=== PATIENT | female | born 1950 | race Caucasian/White ===

== ENCOUNTER 2018-07-09 23:32 | Emergency (ER) | payer MEDICARE, OTHER | END 2018-07-10 04:23 | disposition home or self-care (01) | LOC: ED 23:32 ==

== ENCOUNTER 2020-10-09 10:14 | Day surgery (SDC) | payer MEDICARE ==
[~2020-10-09 10:14] MED LIST: Ak-Dilate OPHTHALMIC*** 1.065 ML, Cyclogyl 1% OPHTH SOL 5 ML 1.065 ML, GATIFLOXACIN 0.5... OP ONE; BETADINE 5% OPHTHALMIC 30 ML OP ONE; Lactated Ringers 1,000 ML IV SCH; NON-FORMULARY ITEM OP ONE; TETRACAINE 0.5% STERI-UNIT SOL OP ONE; cefUROXime sodium 0.005 GM in Sodium Chloride Flush 30 ML*** 0.5 ML IJ SCH
[2020-10-09] MEDS ORDERED: Lactated Ringers 1,000 ML IV ONE (11:11)
[2020-10-09] MEDS ORDERED: DIPRIVAN 200 MG/20 ML IV ONE (12:09)
[2020-10-09] MEDS ORDERED: ACETAZOLAMIDE 250 MG TABLET PO ONE (12:30)
[2020-10-09] MEDS ORDERED: LIDOCAINE HCL 1% 50 MG/5 ML VL PF IJ ONE (12:30)
[2020-10-09] MEDS ORDERED: Epinephrine Preservative Free 1 MG/ML INTRAOP ONE (12:30)
[2020-10-09] MEDS ORDERED: Zofran 4 MG/2 ML VIAL IV PRN (12:30)
[2020-10-09 13:19] VITALS: O2SAT 96
[2020-10-09 13:23] VITALS: BP 136/86; PULSE 84
== END 2020-10-09 13:30 | disposition home or self-care (01) ==
LOC: SDC 10:14
PROVIDERS: ATTEND Ophthalmology
DX: H25.812 Combined forms of age-related cataract, left eye (principal); E11.9 Type 2 diabetes mellitus without complications; Z79.899 Other long term (current) drug therapy; I10 Essential (primary) hypertension; E78.00 Pure hypercholesterolemia, unspecified
CPT/HCPCS: 82947; C1780; J0171; J2001; J2704; A9270-GY

== ENCOUNTER 2020-11-13 07:02 | Day surgery (SDC) | payer MEDICARE ==
[2020-11-13] MEDS ORDERED: Lactated Ringers 1,000 ML IV ONE (07:03)
[2020-11-13] MEDS: TETRACAINE 0.5% STERI-UNIT SOL OP ONE ×2 (07:38→08:11)
[2020-11-13] MEDS ORDERED: ACETAZOLAMIDE 250 MG TABLET PO ONE (09:00)
[2020-11-13] MEDS ORDERED: DIPRIVAN 200 MG/20 ML IV ONE (09:00)
[2020-11-13] MEDS ORDERED: Zofran 4 MG/2 ML VIAL IV PRN (09:00)
[2020-11-13] MEDS ORDERED: ROBINUL ONE (09:00)
[2020-11-13 10:14] VITALS: BP 146/81; PULSE 57; O2SAT 95
[2020-11-13] MEDS ORDERED: LIDOCAINE HCL 1% 50 MG/5 ML VL PF IJ ONE (15:00)
[2020-11-13] MEDS ORDERED: Epinephrine Preservative Free 1 MG/ML INTRAOP ONE (15:00)
== END 2020-11-13 10:25 | disposition home or self-care (01) ==
LOC: SDC 07:02
PROVIDERS: ATTEND Ophthalmology
DX: H25.811 Combined forms of age-related cataract, right eye (principal); E11.9 Type 2 diabetes mellitus without complications; I10 Essential (primary) hypertension; E78.00 Pure hypercholesterolemia, unspecified; Z79.899 Other long term (current) drug therapy
CPT/HCPCS: 82947; C1780; J0171; J2001; J2704; A9270-GY

== ENCOUNTER 2024-07-16 16:32 | Emergency (ER) | payer MEDICARE ==
--- NOTE | 2024-07-16 17:03 | ERPHSYRPT ---
- History of Present Illness Time Seen by Provider: 07/16/24 17:03 Source: patient Exam Limitations: no limitations Physician History: Patient reports to ER after a mechanical fall while walking. She hit the right side of her head and left palm. She has a very superficial laceration of right eyelid. Abrasion noted of left thenar eminence. Patient denies pain, focal weakness, change in speech or difficulty swallowing. No pain and FROM of left hand and wrist. Occurred: just prior to arrival Reason for Fall: tripped Injuries/Pain Location: head, upper extremity Loss of Consciousness: no loss of consciousness Severity of Pain-Max: none Severity of Pain-Current: none Modifying Factors: Worsens With: nothing Associated Symptoms (Fall): No back pain, No confusion, No dizziness, No extremity injury, No lightheadedness, No slurred speech, No vomiting Allergies/Adverse Reactions: No Known Drug Allergies Allergy (Verified 07/16/24 16:47) Home Medications: Clonazepam [Klonopin] 1 mg PO BID 11/23/12 [History] Sertraline HCl [Zoloft] 100 mg PO DAILY 11/23/12 [History] Atorvastatin Calcium [Lipitor] 10 mg PO DAILY 04/30/13 [History] Aspirin EC 81 mg [Ecotrin 81 mg] 81 mg PO DAILY 10/05/20 [History] Metformin HCl 500 mg [Glucophage 500 MG] 500 mg PO BIDWM 10/05/20 [History] Vit C/E/Cuperic/Zinc/Lutein [Preservision Lutein Softgel] 1 each PO DAILY 10/05/20 [History] Hx Tetanus, Diphtheria Vaccination/Date Given: No Hx Influenza Vaccination/Date Given: Yes Hx Pneumococcal Vaccination/Date Given: Yes - Review of Systems All Other Systems: Reviewed and Negative - Past Medical History Pertinent Past Medical History: Yes Neurological History: No Pertinent History ENT History: Cataracts, Glaucoma, Macular Degeneration Cardiac History: High Cholesterol, Hypertension, Other Respiratory History: No Pertinent History Endocrine Medical History: Diabetes Type II Musculoskeletal History: No Pertinent History GI Medical History: No Pertinent History History: No Pertinent History Psycho-Social History: Anxiety, Depression Female Reproductive Disorders: No Pertinent History Other Medical History: BRADYCARDIA. PANIC ATTACKS - Past Surgical History Past Surgical History: Yes Neuro Surgical History: No Pertinent History Cardiac: No Pertinent History Respiratory: No Pertinent History Gastrointestinal: No Pertinent History Genitourinary: No Pertinent History Musculoskeletal: No Pertinent History Female Surgical History: Tubal Ligation Significant Family History: no pertinent family hx - Social History Drug Use: none - Nursing Vital Signs Nursing Vital Signs: Initial Vital Signs Temperature 97.6 F 07/16/24 16:49 Pulse Rate 65 07/16/24 16:49 Respiratory Rate 20 07/16/24 16:49 Blood Pressure 143/77 07/16/24 16:49 O2 Sat by Pulse Oximetry 97 07/16/24 16:49 Pain Scale Pain Intensity 0 - Parker Coma Score Best Eye Response ([place]arker): (4) open spontaneously Best Verbal Response ([place]): (5) oriented Best Motor Response ([place]arker): (6) obeys commands Parker Total: 15 - Physical Exam General Appearance: no apparent distress Head Injury: lacerations (right eyelid), swelling, tenderness Eye Exam: PERRL/EOMI, eyes nml inspection ENT Exam: airway nml Neck Exam: supple, trachea midline, full range of motion, normal alignment, normal inspection Extremity Exam: normal range of motion, other (abrasion left thenar eminence), No tenderness Neurologic Exam: alert, oriented x 3, cooperative SpO2 Interpretation: normal O2 Delivery: Room Air Procedures - Laceration/Wound Repair Right Head Time of Procedure: 18:15 Wound Location: Right, forehead Wound Length (cm): 1.5 Wound's Depth, Shape: superficial Wound Explored: clean Irrigated: Yes Hibiclens Prep: Yes Wound Repaired With: Dermabond Sterile Dressing Applied?: No Splint Applied?: No Sling Applied?: No - Course Nursing assessment & vital signs reviewed: Yes - CT Exams Head CT Interpretation: Negative, Tele-radiologist Report Ordered Tests: Active Orders 24 hr Category Date Time Status HEAD WITHOUT CONTRAST [CT] Stat Exams 07/16/24 17:03 Taken - Progress Progress: improved Progress Note: Patient had a mechanical fall hitting the right side of her head, she has swelling and superficial laceration of eyelid that will require approximation with surgical glue. Neuro exam wnl on exam today, will order CT head to r/o acute bleed. No Pain with palpation or ROM of left wrist, imaging deferred at this time. 07/16/24 18:28 CT head neg for acute bleed. Counseled pt/family regarding: diagnosis, need for follow-up, rad results Medical Desision Making - Diagnostic Testing Diagnostic test were ordered, analyzed, and reviewed by me: Yes Radiological Interpretation: Interpreted by me, Reviewed by me, Teleradiologist Report - Risk of complications Low Risk: Low risk of morbidity from additional dx testing or treatment - Departure Departure Disposition: Home Clinical Impression: Fall, Laceration of forehead without complication, Abrasion of palm of left hand Condition: Good Critical Care Time: No Referrals: LEXX ZHANG [Primary Care Provider] - Follow up/PCP as directed Instructions: Preventing falls in adults
[2024-07-16 17:13] VITALS: BP 143/77; PULSE 65; RESP 20; TEMP 97.6; O2SAT 97
--- NOTE | 2024-07-16 18:32 | XRAY ---
CLINICAL HISTORY: fall, headache COMPARISON: None. TECHNIQUE: An axial non-contrast CT scan of the brain was performed from the skull base to the high parietal region. One of the following dose reduction techniques were utilized for this exam: Automated exposure control, adjustment of the mA and/or kV according to patient size, use of iterative reconstruction. FINDINGS: Brain Parenchyma: No evidence of hemorrhage, or mass effect. Diffuse exaggerated periventricular hypoattenuation. Ill-defined hypodensity seen in the right deep periventricular parieto-occipital region, likely part of the chronic ischemic changes No acute infarctions Right basal ganglia 4 mm hyperdensity, likely related to aging calcification Ventricular System: Ventricles are mildly dilated. Subarachnoid Spaces: Widened sulci and cisterns. No evidence of subarachnoid hemorrhage or extra-axial fluid collections. Cerebellum and Brainstem: Normal size and signal. No masses, lesions, or areas of abnormal signal. Orbits: Normal appearance of the globes, optic nerves, and extraocular muscles. Mild right frontal extracranial soft tissue edema and swelling. Sinuses: Clear paranasal sinuses. No evidence of sinusitis or mucosal thickening. Mastoid Air Cells: Clear mastoid air cells. No evidence of mastoiditis. Skull: Normal skull morphology. IMPRESSION: 1. No evidence of intracranial hemorrhage. 2. Brain involutional changes. with small vessel disease. 3. Mild right frontal extracranial soft tissue edema and swelling, posttraumatic. Electronically Signed by: Jaime Hair MD. (07/16/2024 18:26:50 EDT)
== END 2024-07-16 18:55 | disposition home or self-care (01) ==
LOC: ED 16:32
DX: S01.81XA Laceration without foreign body of other part of head, initial encounter (principal); S60.512A Abrasion of left hand, initial encounter; W01.0XXA Fall on same level from slipping, tripping and stumbling without subsequent striking against object, initial encounter; E78.5 Hyperlipidemia, unspecified; I10 Essential (primary) hypertension; E11.9 Type 2 diabetes mellitus without complications; Z79.84 Long term (current) use of oral hypoglycemic drugs; Z79.899 Other long term (current) drug therapy
CPT/HCPCS: 12001; 70450; 99283; 99284

== ENCOUNTER 2025-01-29 12:37 | Observation (INO) | payer MEDICARE ==
[2025-01-29 13:19] LABS: BASOPHIL % 0.4 % (0.1-1.2); Basophil (Absolute #) 0.03 x10^3/uL (0.01-0.08); Eosinophil (Absolute #) 0.16 x10^3/uL (0.04-0.36); Hematocrit 44.6 % (34.1-44.9); Hemoglobin 14.8 g/dL (11.2-15.7); IMMATURE GRAN # 0.03 x10^3u/L (0.001-0.031); IMMATURE GRAN % 0.4 % (0.001-0.429); Lymphocyte (Absolute #) 2.31 x10^3/uL (1.18-3.74); Mean Corpuscular Hemoglobin 30.2 pg (25.6-32.2); Mean Corpuscular Hgb Concent. 33.2 g/dL (32.2-35.5); Monocyte (Absolute #) 0.61 x10^3/uL (0.24-0.86); NUCLEATED RBC # 0.00 x10^3u/L (0.00-0.012); NUCLEATED RBC % 0.0 % (0.00-0.2); Platelet Count 193 x10^3/uL (182-369); Red Blood Count 4.90 x10^6/uL (3.93-5.22); White Blood Count 7.4 x10^3/uL (3.98-10.04)
--- NOTE | 2025-01-29 13:21 | ERPHSYRPT ---
- History of Present Illness Time Seen by Provider: 01/29/25 12:44 Source: patient, family Exam Limitations: clinical condition Patient Subjective Stated Complaint: Pt. states, "I have been more forgetful of late, I can't even remember how to use my cell phone. I thought today was Thursday. I've also had more falls recently. I woke up today feeling odd and it scared me" Triage Nursing Assessment: Pt. ambulates to room with assist x1, slightly unsteady gait. AOx4, Skin P/W/D, Resp. even unlabored, No edema. Pleasant and cooperative. Physician History: Patient is here with increased confusion over the past 2 to 3 days. Patient's adult sister is in the room, does help with history. Per her, patient states that she woke up today and was confused, cannot figure out how to use the phone, was more panicky. She states that patient has been getting more confused over the past year. Patient does live alone. They are concerned that she may be having UTIs or mini strokes. Patient does have a follow-up with her PCP, Dr. Garland tomorrow. Patient has no specific focal neurological findings, no fevers at home. States that she just feels "more off". Patient's adult daughter is a nurse and recommended she be brought in for evaluation. As I walk into the room, patient is pleasant, answering all my questions appropriately. Allergies/Adverse Reactions: No Known Drug Allergies Allergy (Verified 07/16/24 16:47) Home Medications: Clonazepam [Klonopin] 1 mg PO BID 11/23/12 [History] Sertraline HCl [Zoloft] 100 mg PO DAILY 11/23/12 [History] Atorvastatin Calcium [Lipitor] 10 mg PO DAILY 04/30/13 [History] Aspirin EC 81 mg [Ecotrin 81 mg] 81 mg PO DAILY 10/05/20 [History] Hx Tetanus, Diphtheria Vaccination/Date Given: No Hx Influenza Vaccination/Date Given: Yes Hx Pneumococcal Vaccination/Date Given: Yes Travel Risk - International Travel Have you traveled outside of the country in past 3 weeks: No - Emerging Infectious Disease Are you exhibiting symptoms associated with any current EIDs: No - Past Medical History Pertinent Past Medical History: Yes Neurological History: No Pertinent History ENT History: Cataracts, Glaucoma, Macular Degeneration Cardiac History: High Cholesterol, Hypertension, Other Respiratory History: No Pertinent History Endocrine Medical History: Diabetes Type II Musculoskeletal History: No Pertinent History GI Medical History: No Pertinent History History: No Pertinent History Psycho-Social History: Anxiety, Depression Female Reproductive Disorders: No Pertinent History Other Medical History: BRADYCARDIA. PANIC ATTACKS - Past Surgical History Past Surgical History: Yes Neuro Surgical History: No Pertinent History Cardiac: No Pertinent History Respiratory: No Pertinent History Gastrointestinal: No Pertinent History Genitourinary: No Pertinent History Musculoskeletal: No Pertinent History Female Surgical History: Tubal Ligation Significant Family History: no pertinent family hx - Social History Smoking Status: Never smoker Exposure to second hand smoke: No Drug Use: none - Social Determinants of Health Will the patient participate in the screening: Declined to provide - Nursing Vital Signs Nursing Vital Signs: Initial Vital Signs Temperature 96.8 F 01/29/25 12:38 Pulse Rate 56 L 01/29/25 12:38 Respiratory Rate 16 01/29/25 12:38 Blood Pressure 174/85 01/29/25 12:38 O2 Sat by Pulse Oximetry 94 L 01/29/25 12:38 Pain Scale Pain Intensity 0 - Physical Exam SpO2 Interpretation: normal SpO2: 94 Comments: 01/29/25 13:20 Review of Systems Constitutional: Negative for fever. Increased confusion HENT: Negative for congestion. Respiratory: Negative for shortness of breath. Cardiovascular: Negative for chest pain. Gastrointestinal: Negative for abdominal pain. Genitourinary: Negative for dysuria. Musculoskeletal: Negative for back pain. Skin: Negative for rash. Neurological: Negative for headaches. Psychiatric/Behavioral: Negative for behavioral problems. All other systems reviewed and are negative. Physical Exam Vitals signs and nursing note reviewed. Constitutional: Appearance: Patient is well-developed. HENT: Head: Normocephalic and atraumatic. Eyes: Conjunctiva/sclera: Conjunctivae normal. Neck: Musculoskeletal: Normal range of motion. Trachea: No tracheal deviation. Cardiovascular: Rate and Rhythm: Normal rate. Heart sounds normal. Pulmonary: Effort: Pulmonary effort is normal. No respiratory distress. Abdominal: Palpations: Abdomen is soft. Musculoskeletal: General: No deformity. Skin: General: Skin is warm and dry. Neurological/ Psychiatric: Mental Status: Mental status, behavior, interaction with environment is appropriate for patient's age and condition. Patient does know who the president is, does remember how she got here today, does answer my question going. Motor: Patient lifts arms against gravity. Muscle strength and tone are normal Reflexes: Intact major reflexes Sensory: Light touch sensation intact throughout upper and lower extremities Coordination: Rapid alternating movements are intact. Normal [id number] Gait/Stance: Posture is normal, patient is sitting up in bed with normal strength Ordered Tests: Active Orders 24 hr Category Date Time Status Call Admit Doctor for Orders ON ADMISSION Care 01/29/25 16:02 Active Code Status Order ROUTINE Care 01/29/25 16:02 Active EKG-ER Only STAT Care 01/29/25 13:08 Active IV Insertion STAT Care 01/29/25 13:[address] in Observation ROUTINE Care 01/29/25 16:02 Active House Regular Diet Diet 01/30/25 Breakfast Active CHEST 1 VIEW (PORTABLE) Stat Exams 01/29/25 13:08 Completed HEAD WITHOUT CONTRAST [CT] Stat Exams 01/29/25 13:09 Completed BLOOD CULTURE Stat Lab 01/29/25 13:27 Received CBC W DIFF Stat Lab 01/29/25 13:10 Completed CMP Stat Lab 01/29/25 13:10 Completed CULTURE,URINE Stat Lab 01/29/25 13:08 Received LIPASE Stat Lab 01/29/25 13:10 Completed TROPONIN Q4H Lab 01/29/25 13:10 Completed TROPONIN Q4H Lab 01/29/25 17:15 Ordered TROPONIN Q4H Lab 01/29/25 21:15 Ordered UA W/RFX UR CULTURE Stat Lab 01/29/25 13:08 Completed Pulse Oximetry CONTINUOUS RT 01/29/25 16:02 Active Respiratory Therapy Consult ONCE RT 01/29/25 16:02 Active Transfer Order Routine Transfer 01/29/25 Completed Medication Summary Discontinued Medications Generic Name Dose Route Start Last Admin Trade Name Freq PRN Reason Stop Dose Admin Ceftriaxone Sodium 1 gm in 100 mls @ 200 mls/hr 01/29/25 15:45 01/29/25 15:49 Rocephin 1 Gm / 100 Ml Nacl IV 01/29/25 16:14 200 mls/hr STAT ONE 200 mls/hr Administration Ceftriaxone Sodium Confirm 01/29/25 15:47 Rocephin 1 Gm / 100 Ml Nacl Administered 01/29/25 15:48 Dose 1 gm in 100 mls @ ud IV .STK-MED ONE Lab/Rad Data: Laboratory Result Diagrams 01/29/25 13:10 01/29/25 13:10 Laboratory Results 01/29/25 01/29/25 01/29/25 Range/Units 13:10 13:10 13:10 WBC 7.4 (3.98-10.04) x10^3/uL RBC 4.90 (3.93-5.22) x10^6/uL Hgb 14.8 (11.2-15.7) g/dL Hct 44.6 (34.1-44.9) % MCV 91.0 (79.4-94.8) fL MCH 30.2 (25.6-32.2) pg MCHC 33.2 (32.2-35.5) g/dL RDW 13.0 (11.7-14.4) % Plt Count 193 (182-369) x10^3/uL MPV 11.0 (9.4-12.3) fL Gran % 57.7 (34.0-71.1) % Immature Gran % (Auto) 0.4 (0.001-0.429) % Nucleat RBC Rel Count 0.0 (0.00-0.2) % Eos # (Auto) 0.16 (0.04-0.36) x10^3/uL Immature Gran # (Auto) 0.03 (0.001-0.031) x10^3u/L Absolute Lymphs (auto) 2.31 (1.18-3.74) x10^3/uL Absolute Monos (auto) 0.61 (0.24-0.86) x10^3/uL Absolute Nucleated RBC 0.00 (0.00-0.012) x10^3u/L Lymphocytes % 31.1 (19.3-51.7) % Monocytes % 8.2 (4.7-12.5) % Eosinophils % 2.2 (0.7-5.8) % Basophils % 0.4 (0.1-1.2) % Absolute Granulocytes 4.28 (1.56-6.13) x10^3/uL Basophils # 0.03 (0.01-0.08) x10^3/uL Sodium 141 (135-145) mmol/L Potassium 4.4 (3.5-5.1) mmol/L Chloride 107 (98-107) mmol/L Carbon Dioxide 27 (22-30) mmol/L Anion Gap 11.4 (5-15) MEQ/L BUN 18 H (7-17) mg/dL Creatinine 0.65 (0.52-1.04) mg/dL Estimated GFR 92.3 ML/MIN Glucose 154 H (74-106) mg/dL Calcium 11.7 H (8.4-10.2) mg/dL Total Bilirubin 0.50 (0.2-1.3) mg/dL AST 29 (14-36) U/L ALT 24 (0-35) U/L Alkaline Phosphatase 175 H (38-126) U/L Troponin I < 0.012 (0.000-0.033) ng/mL Serum Total Protein 7.7 (6.3-8.2) g/dL Albumin 4.7 (3.5-5.0) g/dL Lipase 183 (23-300) U/L Urine Color (Yellow) Urine Appearance (Clear) Urine pH (4.6-8.0) Ur Specific [place] (1.005-1.030) Urine Protein (Negative) Urine Glucose (UA) (Negative) mg/dL Urine Ketones (Negative) Urine Blood (Negative) Urine Nitrite (Negative) Urine Bilirubin (Negative) Urine Urobilinogen (0.2) mg/dL Ur Leukocyte Esterase (Negative) Urine Microscopic RBC (0-5) /HPF Urine Microscopic WBC (0-5) /HPF Ur Epithelial Cells (None Seen) /HPF Calcium Oxalate Crystal (None Seen) /HPF Urine Bacteria (None Seen) /HPF Urine Culture Reflexed (NO) 01/29/25 Range/Units 13:08 WBC (3.98-10.04) x10^3/uL RBC (3.93-5.22) x10^6/uL Hgb (11.2-15.7) g/dL Hct (34.1-44.9) % MCV (79.4-94.8) fL MCH (25.6-32.2) pg MCHC (32.2-35.5) g/dL RDW (11.7-14.4) % Plt Count (182-369) x10^3/uL MPV (9.4-12.3) fL Gran % (34.0-71.1) % Immature Gran % (Auto) (0.001-0.429) % Nucleat RBC Rel Count (0.00-0.2) % Eos # (Auto) (0.04-0.36) x10^3/uL Immature Gran # (Auto) (0.001-0.031) x10^3u/L Absolute Lymphs (auto) (1.18-3.74) x10^3/uL Absolute Monos (auto) (0.24-0.86) x10^3/uL Absolute Nucleated RBC (0.00-0.012) x10^3u/L Lymphocytes % (19.3-51.7) % Monocytes % (4.7-12.5) % Eosinophils % (0.7-5.8) % Basophils % (0.1-1.2) % Absolute Granulocytes (1.56-6.13) x10^3/uL Basophils # (0.01-0.08) x10^3/uL Sodium (135-145) mmol/L Potassium (3.5-5.1) mmol/L Chloride (98-107) mmol/L Carbon Dioxide (22-30) mmol/L Anion Gap (5-15) MEQ/L BUN (7-17) mg/dL Creatinine (0.52-1.04) mg/dL Estimated GFR ML/MIN Glucose (74-106) mg/dL Calcium (8.4-10.2) mg/dL Total Bilirubin (0.2-1.3) mg/dL AST (14-36) U/L ALT (0-35) U/L Alkaline Phosphatase (38-126) U/L Troponin I (0.000-0.033) ng/mL Serum Total Protein (6.3-8.2) g/dL Albumin (3.5-5.0) g/dL Lipase (23-300) U/L Urine Color Yellow (Yellow) Urine Appearance Clear (Clear) Urine pH 5.0 (4.6-8.0) Ur Specific [place] >=1.030 A (1.005-1.030) Urine Protein Negative (Negative) Urine Glucose (UA) Negative (Negative) mg/dL Urine Ketones Negative (Negative) Urine Blood Negative (Negative) Urine Nitrite Negative (Negative) Urine Bilirubin Negative (Negative) Urine Urobilinogen 1.0 A (0.2) mg/dL Ur Leukocyte Esterase Negative (Negative) Urine Microscopic RBC 0-2 (0-5) /HPF Urine Microscopic WBC 0-2 (0-5) /HPF Ur Epithelial Cells None Seen (None Seen) /HPF Calcium Oxalate Crystal 11-25 A (None Seen) /HPF Urine Bacteria Rare A (None Seen) /HPF Urine Culture Reflexed ORDERED SEPARATELY (NO) - Progress Progress: improved Progress Note: 01/29/25 13:20 Differential diagnosis includes: PNA, STEMI, NSTEMI, other infection, musculoskeletal pain, pneumothorax, UTI, head bleed, TIA, electrolyte abnormality - We'll obtain basic labs, fluids, EKG, troponin, chest x-ray - EKG shows no ST changes - my read - O2 saturations consistently greater than 95%. - CXR shows no pneumonia, pneumothorax - my read 01/29/25 16:24 We did obtain a head CT that did not show any acute bleed, other abnormality. UA showed some bacteria in the urine. EKG as above, no acute ST changes. Overall, no clear smoking gun for patient's acute mental status change this morning. Patient appears to have acute metabolic encephalopathy on top of chronic changes. Patient's adult sister states that she has decline in function over the last 1 year. However, given that this event is acute, I did discuss with patient's sister and adult daughter and the patient to make this decision possible. Using shared decision making, we did decide to admit patient for observation. Therefore, I did start ceftriaxone for the bacteria in urine. I discussed over the phone with on-call physician, Dr. Ike Lyle. We discussed the case in detail, answered all his questions. He will admit patient under his service, continued close monitoring in the hospital. Counseled pt/family regarding: lab results, diagnosis, need for follow-up, rad results - Departure Departure Disposition: Observation Clinical Impression: Acute metabolic encephalopathy, Bacteria in urine, Confusion Condition: Stable Critical Care Time: No
[2025-01-29 13:33] LABS: Calcium 11.7 mg/dL (8.4-10.2); Carbon Dioxide 27.0 mmol/L (22-30); Creatinine 1 0.65 mg/dL (0.52-1.04); EST GLOMERULAR FILTRATION RATE 92.3 ML/MIN; Glucose 154.0 mg/dL (74-106); Potassium 4.4 mmol/L (3.5-5.1); SGOT/AST 29.0 U/L (14-36); SGPT/ALT 24.0 U/L (0-35); Total Protein 7.7 g/dL (6.3-8.2)
[2025-01-29 13:55] LABS: Glucose, Urine Negative (Negative); Protein,Urine Dip Negative (Negative)
[2025-01-29 14:07] LABS: RBC 0-2 /HPF (0-5); WBC 0-2 /HPF (0-5)
--- NOTE | 2025-01-29 15:04 | XRAY ---
CLINICAL HISTORY: AMS COMPARISON: 07/16/2024 CT TECHNIQUE: Axial non-contrast CT scan of the brain was performed from the skull base to the high parietal region. One of the following dose reduction techniques was utilized for this exam: automated exposure control, adjustment of the mA and/or kV according to patient size, or use of iterative reconstruction. DLP: 1044.86 mGy.cm FINDINGS: Brain Parenchyma: There is no evidence of acute infarct, hemorrhage, or mass effect. Diffuse periventricular hypoattenuation is present, with unchanged hypodensity seen in the right parietal periventricular white matter, which is likely part of chronic ischemic changes. A stable right basal ganglia calcific focus is noted. Ventricular System: The ventricles are mildly dilated. Subarachnoid Spaces: The sulci and cisterns are widened. There is no evidence of subarachnoid hemorrhage or extra-axial fluid collections. Cerebellum and Brainstem: The cerebellum and brainstem are normal in size and signal. No masses, lesions, or areas of abnormal signal are identified. Orbits: The globes, optic nerves, and extraocular muscles appear normal. Interval resolution of the right frontal subcutaneous hematoma is noted. Sinuses: The paranasal sinuses are clear. There is no evidence of sinusitis or mucosal thickening. Mastoid Air Cells: The mastoid air cells are clear. There is no evidence of mastoiditis. Skull: Skull morphology is normal. IMPRESSION: 1. There is no acute infarct, hemorrhage, or mass effect. 2. There are age-appropriate brain involutional changes. 3. Chronic microvascular ischemic changes are unchanged. 4. Interval resolution of the right frontal subcutaneous hematoma. 5. No interval new abnormality. Electronically Signed by: Colt Jose MD. (01/29/2025 15:02:24 EDT)
--- NOTE | 2025-01-29 15:42 | XRAY ---
CLINICAL HISTORY: PNA COMPARISON: Compared to the previous CR study dated 11/23/2012. TECHNIQUE: An X-ray image of the chest was obtained in the AP projection. FINDINGS: Pulmonary Parenchyma: Prominent hilar and basal pulmonary vasculature, unchanged. Otherwise, the lungs are clear bilaterally. There is no evidence of consolidation, collapse, or focal opacities. No pulmonary nodules are identified. There is no evidence of pleural effusion or pleural thickening. Heart and Mediastinum: Mildly enlarged cardiac size, stable. There is no mediastinal widening or masses. No hilar or mediastinal lymphadenopathy is seen. Atheromatous calcifications of the aortic arch are a new finding. Bony Thorax: The bony thorax appears intact without fractures or deformities. Soft Tissues: The soft tissues overlying the chest wall are unremarkable. ECG leads are seen. IMPRESSION: 1. No acute cardiopulmonary abnormalities are identified. 2. Picture of pulmonary congestion, unchanged. 3. Mild cardiomegaly, stable. 4. Atheromatous calcifications of the aortic arch, new finding. 5. No significant interval changes since the last study. Electronically Signed by: Colt Jose MD. (01/29/2025 15:41:34 EDT)
[2025-01-29] MEDS ORDERED: ROCEPHIN 1 GM / 100 ML NaCl 1 GM/100 ML IVPB IV ONE (15:47)
[2025-01-29] MEDS: ROCEPHIN 1 GM / 100 ML NaCl 1 GM/100 ML IVPB IV ONE (15:49)
--- NOTE | 2025-01-29 16:14 | PCM.HP ---
History of Present Illness - Chief Complaint Chief Complaint: confusion Date: 01/29/25 History of Present Illness: is a 74 year old female with a pmhx of HTN, HLD, type 2 diabetes mellitus, anxiety, depression, and recurrent panic attacks, who presented to the emergency department on January 29, 2025, with [id number] confusion. She reports progressive forgetfulness over the past year, now worsening over the last 23 days. The patient reports progressive generalized weakness and unsteady gait over the past several days, associated with increased confusion and forgetfulness. She describes difficulty maintaining balance and has had several recent falls, though she denies focal neurological symptoms such as unilateral weakness, facial droop, slurred speech, or visual changes. On exam, no acute focal deficits are appreciated. She describes episodes of disorientation, such as being unable to operate her cell phone or recall the day. She lives alone and acknowledges feeling off more often lately, which has heightened her anxiety. On arrival to the emergency department, she was bradycardic with a heart rate of 56 beats per minute and mildly hypertensive at 174/85 mmHg. She was afebrile and oxygenating well. Laboratory studies revealed hypercalcemia with a serum calcium of 11.7 mg/dL and an elevated alkaline phosphatase at 175 U/L, concerning for possible metabolic or bone turnover process contributing to her symptoms. Other serum chemistries were pending or unremarkable at this time. Urinalysis showed bacteria but was negative for leukocyte esterase and nitrites, suggesting colonization rather than infection. CXR demonstrated no acute cardiopulmonary disease. There was stable mild cardiomegaly with pulmonary vascular prominence and paratracheal markings, consistent with chronic pulmonary venous congestion, but no new consolidation, effusion, collapse, or nodularity. A noncontrast CT scan of the head showed no acute intracranial hemorrhage, infarct, or mass effect. Chronic small-vessel ischemic changes and age-related atrophy were present, unchanged from prior studies. The previously noted right frontal subcutaneous hematoma had resolved. In the emergency department, she was empirically given a dose of ceftriaxone, though infectious etiology was not clearly supported by initial workup. Given the acute encephalopathy in the context of metabolic derangements, bradycardia, and her baseline risk factors, she will be admitted for further evaluation and management. Neurology will be consulted for assessment of progressive cognitive decline and falls. - Review of Systems Constitutional: Weakness Eyes: No Symptoms Ears, Nose, & Throat: No Symptoms Respiratory: Short Of Breath Cardiac: No Symptoms Abdominal/Gastrointestinal: No Symptoms Genitourinary Symptoms: No Symptoms Musculoskeletal: No Symptoms Skin: No Symptoms Neurological: Dizziness, Headache Psychological: No Symptoms Endocrine: No Symptoms Hematologic/Lymphatic: No Symptoms Immunological/Allergic: No Symptoms Medications & Allergies Home Medications: Home Medication List Clonazepam [Klonopin] 1 mg PO BID 11/23/12 [History Confirmed 01/29/25] Sertraline HCl [Zoloft] 100 mg PO DAILY 11/23/12 [History Confirmed 01/29/25] Metoprolol Succinate 50 mg [Toprol Xl 50 MG] 50 mg PO DAILY #0 tablet.sa 11/24/12 [Rx Confirmed 01/29/25] Atorvastatin Calcium [Lipitor] 10 mg PO DAILY 04/30/13 [History Confirmed 01/29/25] Aspirin EC 81 mg [Ecotrin 81 mg] 81 mg PO DAILY 10/05/20 [History Confirmed 01/29/25] Allergies/Adverse Reactions: Allergies Allergy/AdvReac Type Severity Reaction Status Date / Time No Known Drug Allergies Allergy Verified 07/16/24 16:47 - Past Medical History Past Medical History: Yes Neurological History: No Pertinent History ENT History: Cataracts, Glaucoma, Macular Degeneration Cardiac History: High Cholesterol, Hypertension, Other Respiratory History: No Pertinent History Endocrine Medical History: Diabetes Type II Musculoskelatal History: No Pertinent History GI Medical History: No Pertinent History History: No Pertinent History Pyscho-Social History: Anxiety, Depression Reproductive Disorders: No Pertinent History Comment: BRADYCARDIA. PANIC ATTACKS - Past Surgical History Past Surgical History: Yes Neuro Surgical History: No Pertinent History Cardiac History: No Pertinent History Respiratory Surgery: No Pertinent History GI Surgical History: No Pertinent History Genitourinary Surgical Hx: No Pertinent History Musculskeletal Surgical Hx: No Pertinent History Female Surgical History: Tubal Ligation Significant Family History: heart disease, cancer, diabetes, stroke - Social History Smoking Status: Never smoker Exposure to second hand smoke: No Alcohol: None Drug Use: none - Social Determinants of Health Will the patient participate in the screening: Declined to provide Do you worry about a steady place to live?: No In the past 12 months,have you had to go without utilities?: No Have you or anyone in your house had to go without enough: No Transportation Issues: No Has anyone in your support network made you feel unsafe?: No - Physical Exam Vital Signs: Vital Signs - 24 hr Temp Pulse Resp BP BP Pulse Ox 01/29/25 15:45 94 L 01/29/25 15:01 50 L 25 H 163/70 95 01/29/25 14:30 53 L 23 175/79 95 01/29/25 14:13 51 L 15 175/78 96 01/29/25 13:31 151/59 01/29/25 13:01 56 L 22 163/65 01/29/25 12:38 96.8 F 56 L 16 174/85 94 L General Appearance: no apparent distress Neurologic Exam: alert, oriented x 3, cooperative, confusion Eye Exam: PERRL/EOMI Ears, Nose, Throat Exam: normal ENT inspection Neck Exam: normal inspection Respiratory Exam: normal breath sounds, lungs clear Cardiovascular Exam: regular rate/rhythm, normal heart sounds Gastrointestinal/Abdomen Exam: soft, normal bowel sounds Pelvic Exam: not done Rectal Exam: deferred Back Exam: normal inspection Extremity Exam: normal inspection Skin Exam: normal color Results - Labs Lab/Micro Results: Lab Results-Last 24 Hours 01/29/25 01/29/25 01/29/25 Range/Units 13:08 13:10 13:10 WBC 7.4 (3.98-10.04) x10^3/uL RBC 4.90 (3.93-5.22) x10^6/uL Hgb 14.8 (11.2-15.7) g/dL Hct 44.6 (34.1-44.9) % MCV 91.0 (79.4-94.8) fL MCH 30.2 (25.6-32.2) pg MCHC 33.2 (32.2-35.5) g/dL RDW 13.0 (11.7-14.4) % Plt Count 193 (182-369) x10^3/uL MPV 11.0 (9.4-12.3) fL Gran % 57.7 (34.0-71.1) % Immature Gran % (Auto) 0.4 (0.001-0.429) % Nucleat RBC Rel Count 0.0 (0.00-0.2) % Eos # (Auto) 0.16 (0.04-0.36) x10^3/uL Immature Gran # (Auto) 0.03 (0.001-0.031) x10^3u/L Absolute Lymphs (auto) 2.31 (1.18-3.74) x10^3/uL Absolute Monos (auto) 0.61 (0.24-0.86) x10^3/uL Absolute Nucleated RBC 0.00 (0.00-0.012) x10^3u/L Lymphocytes % 31.1 (19.3-51.7) % Monocytes % 8.2 (4.7-12.5) % Eosinophils % 2.2 (0.7-5.8) % Basophils % 0.4 (0.1-1.2) % Absolute Granulocytes 4.28 (1.56-6.13) x10^3/uL Basophils # 0.03 (0.01-0.08) x10^3/uL Sodium 141 (135-145) mmol/L Potassium 4.4 (3.5-5.1) mmol/L Chloride 107 (98-107) mmol/L Carbon Dioxide 27 (22-30) mmol/L Anion Gap 11.4 (5-15) MEQ/L BUN 18 H (7-17) mg/dL Creatinine 0.65 (0.52-1.04) mg/dL Estimated GFR 92.3 ML/MIN Glucose 154 H (74-106) mg/dL Calcium 11.7 H (8.4-10.2) mg/dL Total Bilirubin 0.50 (0.2-1.3) mg/dL AST 29 (14-36) U/L ALT 24 (0-35) U/L Alkaline Phosphatase 175 H (38-126) U/L Troponin I (0.000-0.033) ng/mL Serum Total Protein 7.7 (6.3-8.2) g/dL Albumin 4.7 (3.5-5.0) g/dL Lipase 183 (23-300) U/L Urine Color Yellow (Yellow) Urine Appearance Clear (Clear) Urine pH 5.0 (4.6-8.0) Ur Specific [place] >=1.030 A (1.005-1.030) Urine Protein Negative (Negative) Urine Glucose (UA) Negative (Negative) mg/dL Urine Ketones Negative (Negative) Urine Blood Negative (Negative) Urine Nitrite Negative (Negative) Urine Bilirubin Negative (Negative) Urine Urobilinogen 1.0 A (0.2) mg/dL Ur Leukocyte Esterase Negative (Negative) Urine Microscopic RBC 0-2 (0-5) /HPF Urine Microscopic WBC 0-2 (0-5) /HPF Ur Epithelial Cells None Seen (None Seen) /HPF Calcium Oxalate Crystal 11-25 A (None Seen) /HPF Urine Bacteria Rare A (None Seen) /HPF Urine Culture Reflexed ORDERED SEPARATELY (NO) 01/29/25 Range/Units 13:10 WBC (3.98-10.04) x10^3/uL RBC (3.93-5.22) x10^6/uL Hgb (11.2-15.7) g/dL Hct (34.1-44.9) % MCV (79.4-94.8) fL MCH (25.6-32.2) pg MCHC (32.2-35.5) g/dL RDW (11.7-14.4) % Plt Count (182-369) x10^3/uL MPV (9.4-12.3) fL Gran % (34.0-71.1) % Immature Gran % (Auto) (0.001-0.429) % Nucleat RBC Rel Count (0.00-0.2) % Eos # (Auto) (0.04-0.36) x10^3/uL Immature Gran # (Auto) (0.001-0.031) x10^3u/L Absolute Lymphs (auto) (1.18-3.74) x10^3/uL Absolute Monos (auto) (0.24-0.86) x10^3/uL Absolute Nucleated RBC (0.00-0.012) x10^3u/L Lymphocytes % (19.3-51.7) % Monocytes % (4.7-12.5) % Eosinophils % (0.7-5.8) % Basophils % (0.1-1.2) % Absolute Granulocytes (1.56-6.13) x10^3/uL Basophils # (0.01-0.08) x10^3/uL Sodium (135-145) mmol/L Potassium (3.5-5.1) mmol/L Chloride (98-107) mmol/L Carbon Dioxide (22-30) mmol/L Anion Gap (5-15) MEQ/L BUN (7-17) mg/dL Creatinine (0.52-1.04) mg/dL Estimated GFR ML/MIN Glucose (74-106) mg/dL Calcium (8.4-10.2) mg/dL Total Bilirubin (0.2-1.3) mg/dL AST (14-36) U/L ALT (0-35) U/L Alkaline Phosphatase (38-126) U/L Troponin I < 0.012 (0.000-0.033) ng/mL Serum Total Protein (6.3-8.2) g/dL Albumin (3.5-5.0) g/dL Lipase (23-300) U/L Urine Color (Yellow) Urine Appearance (Clear) Urine pH (4.6-8.0) Ur Specific [place] (1.005-1.030) Urine Protein (Negative) Urine Glucose (UA) (Negative) mg/dL Urine Ketones (Negative) Urine Blood (Negative) Urine Nitrite (Negative) Urine Bilirubin (Negative) Urine Urobilinogen (0.2) mg/dL Ur Leukocyte Esterase (Negative) Urine Microscopic RBC (0-5) /HPF Urine Microscopic WBC (0-5) /HPF Ur Epithelial Cells (None Seen) /HPF Calcium Oxalate Crystal (None Seen) /HPF Urine Bacteria (None Seen) /HPF Urine Culture Reflexed (NO) - Radiology Impressions Radiology Exams & Impressions: Radiology Procedures Category Date Time Status CHEST 1 VIEW (PORTABLE) Stat Exams 01/29/25 13:08 Completed HEAD WITHOUT CONTRAST [CT] Stat Exams 01/29/25 13:09 Completed - Other Procedures and Tests Respiratory Therapy 01/29/25 16:02 Respiratory Therapy Consult ONCE Assessment/Plan (1) Acute encephalopathy Current Visit: Yes Status: Acute Assessment & Plan: -Likely multifactorial: hypercalcemia, baseline chronic microvascular ischemic disease, and psychosocial stressors. No evidence of acute stroke or infection on initial workup. -Consult neurology for evaluation of cognitive decline, rule out evolving neurodegenerative process versus vascular dementia. -Continue telemetry monitoring -Provide orientation cues and frequent reorientation to reduce delirium risk. -MRI Brain w/o contrast -Continue home atorvastatin/asa -check ammonia level, TSH, B12/fol, ammonia, tox screen -Lipid Code(s): G93.40 - ENCEPHALOPATHY, UNSPECIFIED (2) Hypercalcemia Current Visit: Yes Status: Acute Assessment & Plan: -Calcium 11.7 mg/dL, elevated alkaline phosphatase (175 U/L), associated confusion and gait instability. Likely multifactorial; must evaluate for primary hyperparathyroidism, malignancy , and vitamin Dmediated processes. -Recheck Calcium levels -IVF -Monitor urine output and electrolytes. -If calcium rises >12 mg/dL or symptoms worsen, consider adding calcitonin -Hold thiazides, lithium, vitamin D/calcium supplements. -PTH intact/ionized calcium, vitamin D level, SPEP with free light chains, CEA, CA19-9, CA27, CA125 -Consider CT chest/abdomen/pelvis if concern for malignancy after initial labs. Code(s): E83.52 - HYPERCALCEMIA (3) HTN (hypertension) Current Visit: Yes Status: Acute Assessment & Plan: -Continue metoprolol Code(s): I10 - ESSENTIAL (PRIMARY) HYPERTENSION (4) DMII (diabetes mellitus, type 2) Current Visit: Yes Status: Acute Assessment & Plan: -ADA diet -SSI -A1c (5) Anxiety Current Visit: Yes Status: Acute Assessment & Plan: -Continue Zoloft and Klonapin Code(s): F41.9 - ANXIETY DISORDER, UNSPECIFIED (6) HLD (hyperlipidemia) Current Visit: Yes Status: Acute Assessment & Plan: -Continue atorvastatin Code(s): E78.5 - HYPERLIPIDEMIA, UNSPECIFIED Telemedicine Encounter - Telemedicine Encounter Telemedicine Encounter: "The entirety of this encounter was performed via Telemedicine" This visit was performed using real-time audio and video connection between my location and thepatients locationwith the assistance of a surrogateat the patients location. Written or verbal consent was obtained from the patient/guardian to perform this visit using[facility] technology. Any patient questions regarding the telemedicine interaction were answered.
[2025-01-29] MEDS ORDERED: Zofran 4 MG/2 ML VIAL IV PRN (16:47)
[2025-01-29] MEDS ORDERED: TYLENOL 325 MG PO PRN (16:47)
[2025-01-29] MEDS ORDERED: CLONAZEPAM 1 MG PO PRN (16:59)
[2025-01-29] MEDS: DELTASONE 20 MG PO SCH (17:59)
[2025-01-29] MEDS: HUMALOG SQ PRN (22:02)
--- NOTE | 2025-01-29 22:26 | XRAY ---
CLINICAL HISTORY: stroke like symptoms COMPARISON: None. TECHNIQUE: CT angiography study of the neck vessels with IV contrast was performed, and multiple axial sections were obtained with coronal and sagittal reconstructions. One of the following dose reduction techniques was utilized for this exam: automated exposure control, adjustment of the mA and/or kV according to patient size, and use of iterative reconstruction. One of these 3D techniques was utilized: maximum intensity pixel (MIP), 3D reconstructed images, volume-rendered images, or surface shaded rendering. FINDINGS: Carotid Arteries: The common carotid arteries, internal carotid arteries, and external carotid arteries are well opacified bilaterally. There is no evidence of significant stenosis, occlusion, or aneurysm. There are no significant atherosclerotic changes. Note is made of medialization of the bilateral internal carotid arteries at the level of the pharynx, more on the right as compared to the left side. This represents a relatively significant and dangerous anatomical variant. Vertebral Arteries: The vertebral arteries bilaterally are well opacified. There is no evidence of significant stenosis, occlusion, or aneurysm. There are no significant atherosclerotic changes. Jugular Veins: There is normal opacification of the internal and external jugular veins bilaterally. There is no evidence of thrombosis or compression. Subclavian Arteries: The subclavian arteries bilaterally are well opacified. There is no evidence of significant stenosis, occlusion, or aneurysm. Thyroid Gland: There is normal size and morphology of the thyroid gland. There are no masses or nodules. Soft Tissues: There is normal appearance of the surrounding soft tissues of the neck. There are no abnormal masses or lymphadenopathy. Cervical Spine: There is normal alignment and signal intensity of the cervical vertebrae. There are no fractures, lytic, or sclerotic lesions. IMPRESSION: 1. There is no evidence of any acute vascular abnormality noted, including thrombosis or aneurysm. 2. Note is made of medialization of the bilateral internal carotid arteries at the level of the pharynx, more on the right as compared to the left side. This is a relatively significant and dangerous anatomical variant. Needs clinical correlation. Electronically Signed by: Colt Jose MD. (01/29/2025 22:26:01 EDT)
--- NOTE | 2025-01-29 22:26 | XRAY ---
CLINICAL HISTORY: stroke like symptoms COMPARISON: CT HEAD WITHOUT CONTRAST 01/29/2025 TECHNIQUE: An axial CT angiography of the head was performed with and without IV contrast administration, and sagittal and coronal reformats with MIP reconstructions were obtained. One of these 3D techniques was utilized: Maximum Intensity Pixel (MIP), 3D Reconstructed Images, Volume Rendered Images, or Surface Shaded Rendering. One of the following dose reduction techniques was utilized for this exam: automated exposure control, adjustment of the mA and/or kV according to patient size, and use of iterative reconstruction. FINDINGS: Intracranial Arteries: The intracranial portions of the internal carotid arteries, anterior cerebral arteries, middle cerebral arteries, posterior cerebral arteries, basilar artery, and vertebral arteries are well opacified. There is no evidence of aneurysm, stenosis, or occlusion. There are no significant atherosclerotic changes. [place]: The [place] is complete. There is a normal caliber of the communicating arteries. There are no vascular malformations or aneurysms. Venous Structures: There is normal opacification of the major dural venous sinuses. There is no evidence of venous sinus thrombosis. Brain Parenchyma: Mild atrophic brain changes are noted, with prominence of sulci and gyri. Diffuse periventricular hypoattenuation is present, with unchanged hypodensity seen in the right parietal periventricular white matter, which is likely part of chronic ischemic changes and is stable. A stable right basal ganglia calcific focus is noted. There is normal attenuation of the cerebral hemispheres, cerebellum, and brainstem. There is no evidence of acute infarct, hemorrhage, or mass effect. Ventricular System: There is no evidence of hydrocephalus. Skull and Meninges: The skull shows a normal appearance. There is no evidence of meningeal enhancement or thickening. There is no evidence of right frontal subcutaneous hematoma. Orbits: The globes, optic nerves, and extraocular muscles appear normal. There is no evidence of orbital masses or abnormal signal. IMPRESSION: 1. There is no evidence of significant vascular abnormalities. 2. Redemonstration of bilateral mild periventricular ischemic changes on the background of atrophic brain changes, which are stable. Electronically Signed by: Colt Jose MD. (01/29/2025 22:25:42 EDT)
[2025-01-30 05:11] LABS: BASOPHIL % 0.2 % (0.1-1.2); Basophil (Absolute #) 0.01 x10^3/uL (0.01-0.08); Eosinophil (Absolute #) 0 x10^3/uL (0.04-0.36); Hematocrit 45.4 % (34.1-44.9); Hemoglobin 15.1 g/dL (11.2-15.7); IMMATURE GRAN # 0.01 x10^3u/L (0.001-0.031); IMMATURE GRAN % 0.2 % (0.001-0.429); Lymphocyte (Absolute #) 1.11 x10^3/uL (1.18-3.74); Mean Corpuscular Hemoglobin 29.5 pg (25.6-32.2); Mean Corpuscular Hgb Concent. 33.3 g/dL (32.2-35.5); Monocyte (Absolute #) 0.18 x10^3/uL (0.24-0.86); NUCLEATED RBC # 0.00 x10^3u/L (0.00-0.012); NUCLEATED RBC % 0.0 % (0.00-0.2); Platelet Count 208 x10^3/uL (182-369); Red Blood Count 5.11 x10^6/uL (3.93-5.22); White Blood Count 6.5 x10^3/uL (3.98-10.04)
[2025-01-30 05:33] LABS: Calcium 11.8 mg/dL (8.4-10.2); Carbon Dioxide 20.0 mmol/L (22-30); Creatinine 1 0.65 mg/dL (0.52-1.04); EST GLOMERULAR FILTRATION RATE 92.3 ML/MIN; Glucose 171.0 mg/dL (74-106); Potassium 4.6 mmol/L (3.5-5.1); SGOT/AST 25.0 U/L (14-36); SGPT/ALT 26.0 U/L (0-35); Total Protein 7.9 g/dL (6.3-8.2)
[2025-01-30 07:14] VITALS: RESP 16; TEMP 97.8
[2025-01-30 07:24] LABS: Amphetamine,Urine NEGATIVE (NEGATIVE); Barbiturate,Urine NEGATIVE (NEGATIVE); Benzodiazepine,Urine NEGATIVE (NEGATIVE); Cocaine,Urine NEGATIVE (NEGATIVE); Methadone,Urine NEGATIVE (NEGATIVE); Opiate,Urine NEGATIVE (NEGATIVE); PCP,Urine NEGATIVE (NEGATIVE); THC,Urine NEGATIVE (NEGATIVE)
[2025-01-30] MEDS ORDERED: NON-FORMULARY ITEM (Sertraline Hcl [Zoloft] 100 MG Tablet) PO SCH (10:00)
[2025-01-30] MEDS ORDERED: NON-FORMULARY ITEM (Atorvastatin Calcium [Lipitor] 10 MG Tablet) PO SCH (10:00)
--- NOTE | 2025-01-30 10:09 | PCM.DS ---
Discharge Summary Date of Admission: 01/29/25 16:00 Date of Discharge: 01/30/25 Admitting Physician: JOEL HECK MD Consults: Consults on Case 01/29/25 16:55 Consult Neurology ROUTINE 01/30/25 09:24 Consult,Marcos [Psychiatric Consult] STAT Primary Care Provider: LEXX ZHANG Allergies Allergies No Known Drug Allergies Allergy (Verified 07/16/24 16:47) Hospital Summary - Hospital Course Hospital Course: Ms. Das is a 74-year-old woman with a history of hypertension, hyperlipidemia, type 2 diabetes, anxiety, depression, and recurrent panic attacks who presented to the ED on January 29, 2025, with [id number] confusion, progressive forgetfulness, generalized weakness, and unsteady gait worsening over the past few days. She reported recent falls and episodes of disorientation, though denied focal neurological symptoms. On exam, she had no acute deficits but was noted to be bradycardic and mildly hypertensive. Initial labs revealed hypercalcemia (11.7 mg/dL) and elevated alkaline phosphatase, raising concern for a metabolic or bone-related process. Imaging, including CT head and chest X- ray, showed no acute abnormalities. Urinalysis was suggestive of colonization without clear infection. Despite this, she was empirically started on ceftriaxone. On 01/30, she was alert and oriented with no confusion or neurologic deficits. She endorsed suicidal thoughts, prompting psychiatric consultation. Labs revealed vitamin D and B12 deficiencies; B12 replacement was initiated, but vitamin D could not be corrected due to persistently elevated calcium (now 11.8 mg/dL), so steroids were continued. She is eating and drinking well, and IV fluids were stopped. Urine culture was negative; blood cultures are pending. Echo and MRI are also pending along with several send-out labs. The patient is requesting discharge and will require outpatient follow-up with endocrinology, psychiatry, and her primary care provider. - MRI negative for acute concern. She will need to f/u OP for echo results. - Vitals & Intake/Output Vital Signs: Vital Signs Temperature 97.8 F 01/30/25 07:13 Pulse Rate 60 01/30/25 07:13 Respiratory Rate 16 01/30/25 07:13 Blood Pressure 164/67 01/30/25 07:13 O2 Sat by Pulse Oximetry 94 L 01/30/25 07:13 Intake & Output: Intake & Output 01/27/25 01/28/25 01/29/25 01/30/25 11:59 11:59 11:59 11:59 Intake Total 2148 Balance 2148 Weight 89.9 kg - Lab Result Diagrams: 01/30/25 05:00 01/30/25 05:00 Lab Results-Last 24 Hrs: Lab Results-Last 24 Hours 01/29/25 01/29/25 01/29/25 Range/Units 06:30 13:08 13:10 WBC 7.4 (3.98-10.04) x10^3/uL RBC 4.90 (3.93-5.22) x10^6/uL Hgb 14.8 (11.2-15.7) g/dL Hct 44.6 (34.1-44.9) % MCV 91.0 (79.4-94.8) fL MCH 30.2 (25.6-32.2) pg MCHC 33.2 (32.2-35.5) g/dL RDW 13.0 (11.7-14.4) % Plt Count 193 (182-369) x10^3/uL MPV 11.0 (9.4-12.3) fL Gran % 57.7 (34.0-71.1) % Immature Gran % (Auto) 0.4 (0.001-0.429) % Nucleat RBC Rel Count 0.0 (0.00-0.2) % Eos # (Auto) 0.16 (0.04-0.36) x10^3/uL Immature Gran # (Auto) 0.03 (0.001-0.031) x10^3u/L Absolute Lymphs (auto) 2.31 (1.18-3.74) x10^3/uL Absolute Monos (auto) 0.61 (0.24-0.86) x10^3/uL Absolute Nucleated RBC 0.00 (0.00-0.012) x10^3u/L Lymphocytes % 31.1 (19.3-51.7) % Monocytes % 8.2 (4.7-12.5) % Eosinophils % 2.2 (0.7-5.8) % Basophils % 0.4 (0.1-1.2) % Absolute Granulocytes 4.28 (1.56-6.13) x10^3/uL Basophils # 0.03 (0.01-0.08) x10^3/uL Ionized Calcium (1.12-1.32) mmol/L Sodium (135-145) mmol/L Potassium (3.5-5.1) mmol/L Chloride (98-107) mmol/L Carbon Dioxide (22-30) mmol/L Anion Gap (5-15) MEQ/L BUN (7-17) mg/dL Creatinine (0.52-1.04) mg/dL Estimated GFR ML/MIN Glucose (74-106) mg/dL POC Glucometer (74 to 106) mg/dL Hemoglobin A1c (4.5-6.0) % Calcium (8.4-10.2) mg/dL Total Bilirubin (0.2-1.3) mg/dL AST (14-36) U/L ALT (0-35) U/L Alkaline Phosphatase (38-126) U/L Ammonia (9-30) umol/L Troponin I (0.000-0.033) ng/mL Serum Total Protein (6.3-8.2) g/dL Albumin (3.5-5.0) g/dL Lipase (23-300) U/L Vitamin B12 (239-931) pg/mL 25-OH Vitamin D Total (30-100) ng/mL Folic Acid (2.76 - >20) ng/mL TSH 3rd Generation (0.470-4.680) mIU/L Urine Color Yellow (Yellow) Urine Appearance Clear (Clear) Urine pH 5.0 (4.6-8.0) Ur Specific [place] >=1.030 A (1.005-1.030) Urine Protein Negative (Negative) Urine Glucose (UA) Negative (Negative) mg/dL Urine Ketones Negative (Negative) Urine Blood Negative (Negative) Urine Nitrite Negative (Negative) Urine Bilirubin Negative (Negative) Urine Urobilinogen 1.0 A (0.2) mg/dL Ur Leukocyte Esterase Negative (Negative) Urine Microscopic RBC 0-2 (0-5) /HPF Urine Microscopic WBC 0-2 (0-5) /HPF Ur Epithelial Cells None Seen (None Seen) /HPF Calcium Oxalate Crystal 11-25 A (None Seen) /HPF Urine Bacteria Rare A (None Seen) /HPF Urine Culture Reflexed ORDERED SEPARATELY (NO) Urine Opiates Level NEGATIVE (NEGATIVE) Ur Methadone NEGATIVE (NEGATIVE) Urine Barbiturates NEGATIVE (NEGATIVE) Ur Phencyclidine (PCP) NEGATIVE (NEGATIVE) Urine Amphetamine NEGATIVE (NEGATIVE) U Benzodiazepine Level NEGATIVE (NEGATIVE) Urine Cocaine NEGATIVE (NEGATIVE) Urine Marijuana (THC) NEGATIVE (NEGATIVE) 01/29/25 01/29/25 01/29/25 Range/Units 13:10 13:10 16:47 WBC (3.98-10.04) x10^3/uL RBC (3.93-5.22) x10^6/uL Hgb (11.2-15.7) g/dL Hct (34.1-44.9) % MCV (79.4-94.8) fL MCH (25.6-32.2) pg MCHC (32.2-35.5) g/dL RDW (11.7-14.4) % Plt Count (182-369) x10^3/uL MPV (9.4-12.3) fL Gran % (34.0-71.1) % Immature Gran % (Auto) (0.001-0.429) % Nucleat RBC Rel Count (0.00-0.2) % Eos # (Auto) (0.04-0.36) x10^3/uL Immature Gran # (Auto) (0.001-0.031) x10^3u/L Absolute Lymphs (auto) (1.18-3.74) x10^3/uL Absolute Monos (auto) (0.24-0.86) x10^3/uL Absolute Nucleated RBC (0.00-0.012) x10^3u/L Lymphocytes % (19.3-51.7) % Monocytes % (4.7-12.5) % Eosinophils % (0.7-5.8) % Basophils % (0.1-1.2) % Absolute Granulocytes (1.56-6.13) x10^3/uL Basophils # (0.01-0.08) x10^3/uL Ionized Calcium 1.41 H (1.12-1.32) mmol/L Sodium 141 (135-145) mmol/L Potassium 4.4 (3.5-5.1) mmol/L Chloride 107 (98-107) mmol/L Carbon Dioxide 27 (22-30) mmol/L Anion Gap 11.4 (5-15) MEQ/L BUN 18 H (7-17) mg/dL Creatinine 0.65 (0.52-1.04) mg/dL Estimated GFR 92.3 ML/MIN Glucose 154 H (74-106) mg/dL POC Glucometer (74 to 106) mg/dL Hemoglobin A1c (4.5-6.0) % Calcium 11.7 H (8.4-10.2) mg/dL Total Bilirubin 0.50 (0.2-1.3) mg/dL AST 29 (14-36) U/L ALT 24 (0-35) U/L Alkaline Phosphatase 175 H (38-126) U/L Ammonia (9-30) umol/L Troponin I < 0.012 (0.000-0.033) ng/mL Serum Total Protein 7.7 (6.3-8.2) g/dL Albumin 4.7 (3.5-5.0) g/dL Lipase 183 (23-300) U/L Vitamin B12 (239-931) pg/mL 25-OH Vitamin D Total (30-100) ng/mL Folic Acid (2.76 - >20) ng/mL TSH 3rd Generation (0.470-4.680) mIU/L Urine Color (Yellow) Urine Appearance (Clear) Urine pH (4.6-8.0) Ur Specific [place]iva (1.005-1.030) Urine Protein (Negative) Urine Glucose (UA) (Negative) mg/dL Urine Ketones (Negative) Urine Blood (Negative) Urine Nitrite (Negative) Urine Bilirubin (Negative) Urine Urobilinogen (0.2) mg/dL Ur Leukocyte Esterase (Negative) Urine Microscopic RBC (0-5) /HPF Urine Microscopic WBC (0-5) /HPF Ur Epithelial Cells (None Seen) /HPF Calcium Oxalate Crystal (None Seen) /HPF Urine Bacteria (None Seen) /HPF Urine Culture Reflexed (NO) Urine Opiates Level (NEGATIVE) Ur Methadone (NEGATIVE) Urine Barbiturates (NEGATIVE) Ur Phencyclidine (PCP) (NEGATIVE) Urine Amphetamine (NEGATIVE) U Benzodiazepine Level (NEGATIVE) Urine Cocaine (NEGATIVE) Urine Marijuana (THC) (NEGATIVE) 01/29/25 01/29/25 01/29/25 Range/Units 17:23 17:23 17:24 WBC (3.98-10.04) x10^3/uL RBC (3.93-5.22) x10^6/uL Hgb (11.2-15.7) g/dL Hct (34.1-44.9) % MCV (79.4-94.8) fL MCH (25.6-32.2) pg MCHC (32.2-35.5) g/dL RDW (11.7-14.4) % Plt Count (182-369) x10^3/uL MPV (9.4-12.3) fL Gran % (34.0-71.1) % Immature Gran % (Auto) (0.001-0.429) % Nucleat RBC Rel Count (0.00-0.2) % Eos # (Auto) (0.04-0.36) x10^3/uL Immature Gran # (Auto) (0.001-0.031) x10^3u/L Absolute Lymphs (auto) (1.18-3.74) x10^3/uL Absolute Monos (auto) (0.24-0.86) x10^3/uL Absolute Nucleated RBC (0.00-0.012) x10^3u/L Lymphocytes % (19.3-51.7) % Monocytes % (4.7-12.5) % Eosinophils % (0.7-5.8) % Basophils % (0.1-1.2) % Absolute Granulocytes (1.56-6.13) x10^3/uL Basophils # (0.01-0.08) x10^3/uL Ionized Calcium (1.12-1.32) mmol/L Sodium (135-145) mmol/L Potassium (3.5-5.1) mmol/L Chloride (98-107) mmol/L Carbon Dioxide (22-30) mmol/L Anion Gap (5-15) MEQ/L BUN (7-17) mg/dL Creatinine (0.52-1.04) mg/dL Estimated GFR ML/MIN Glucose (74-106) mg/dL POC Glucometer (74 to 106) mg/dL Hemoglobin A1c (4.5-6.0) % Calcium (8.4-10.2) mg/dL Total Bilirubin (0.2-1.3) mg/dL AST (14-36) U/L ALT (0-35) U/L Alkaline Phosphatase (38-126) U/L Ammonia (9-30) umol/L Troponin I < 0.012 (0.000-0.033) ng/mL Serum Total Protein (6.3-8.2) g/dL Albumin (3.5-5.0) g/dL Lipase (23-300) U/L Vitamin B12 (239-931) pg/mL 25-OH Vitamin D Total 13.0 L (30-100) ng/mL Folic Acid (2.76 - >20) ng/mL TSH 3rd Generation 2.116 (0.470-4.680) mIU/L Urine Color (Yellow) Urine Appearance (Clear) Urine pH (4.6-8.0) Ur Specific [place]iva (1.005-1.030) Urine Protein (Negative) Urine Glucose (UA) (Negative) mg/dL Urine Ketones (Negative) Urine Blood (Negative) Urine Nitrite (Negative) Urine Bilirubin (Negative) Urine Urobilinogen (0.2) mg/dL Ur Leukocyte Esterase (Negative) Urine Microscopic RBC (0-5) /HPF Urine Microscopic WBC (0-5) /HPF Ur Epithelial Cells (None Seen) /HPF Calcium Oxalate Crystal (None Seen) /HPF Urine Bacteria (None Seen) /HPF Urine Culture Reflexed (NO) Urine Opiates Level (NEGATIVE) Ur Methadone (NEGATIVE) Urine Barbiturates (NEGATIVE) Ur Phencyclidine (PCP) (NEGATIVE) Urine Amphetamine (NEGATIVE) U Benzodiazepine Level (NEGATIVE) Urine Cocaine (NEGATIVE) Urine Marijuana (THC) (NEGATIVE) 01/29/25 01/29/25 01/29/25 Range/Units 17:24 17:24 17:24 WBC (3.98-10.04) x10^3/uL RBC (3.93-5.22) x10^6/uL Hgb (11.2-15.7) g/dL Hct (34.1-44.9) % MCV (79.4-94.8) fL MCH (25.6-32.2) pg MCHC (32.2-35.5) g/dL RDW (11.7-14.4) % Plt Count (182-369) x10^3/uL MPV (9.4-12.3) fL Gran % (34.0-71.1) % Immature Gran % (Auto) (0.001-0.429) % Nucleat RBC Rel Count (0.00-0.2) % Eos # (Auto) (0.04-0.36) x10^3/uL Immature Gran # (Auto) (0.001-0.031) x10^3u/L Absolute Lymphs (auto) (1.18-3.74) x10^3/uL Absolute Monos (auto) (0.24-0.86) x10^3/uL Absolute Nucleated RBC (0.00-0.012) x10^3u/L Lymphocytes % (19.3-51.7) % Monocytes % (4.7-12.5) % Eosinophils % (0.7-5.8) % Basophils % (0.1-1.2) % Absolute Granulocytes (1.56-6.13) x10^3/uL Basophils # (0.01-0.08) x10^3/uL Ionized Calcium (1.12-1.32) mmol/L Sodium (135-145) mmol/L Potassium (3.5-5.1) mmol/L Chloride (98-107) mmol/L Carbon Dioxide (22-30) mmol/L Anion Gap (5-15) MEQ/L BUN (7-17) mg/dL Creatinine (0.52-1.04) mg/dL Estimated GFR ML/MIN Glucose (74-106) mg/dL POC Glucometer (74 to 106) mg/dL Hemoglobin A1c (4.5-6.0) % Calcium 11.7 H (8.4-10.2) mg/dL Total Bilirubin (0.2-1.3) mg/dL AST (14-36) U/L ALT (0-35) U/L Alkaline Phosphatase (38-126) U/L Ammonia < 9 L (9-30) umol/L Troponin I (0.000-0.033) ng/mL Serum Total Protein (6.3-8.2) g/dL Albumin (3.5-5.0) g/dL Lipase (23-300) U/L Vitamin B12 212 L (239-931) pg/mL 25-OH Vitamin D Total (30-100) ng/mL Folic Acid (2.76 - >20) ng/mL TSH 3rd Generation (0.470-4.680) mIU/L Urine Color (Yellow) Urine Appearance (Clear) Urine pH (4.6-8.0) Ur Specific [place]iva (1.005-1.030) Urine Protein (Negative) Urine Glucose (UA) (Negative) mg/dL Urine Ketones (Negative) Urine Blood (Negative) Urine Nitrite (Negative) Urine Bilirubin (Negative) Urine Urobilinogen (0.2) mg/dL Ur Leukocyte Esterase (Negative) Urine Microscopic RBC (0-5) /HPF Urine Microscopic WBC (0-5) /HPF Ur Epithelial Cells (None Seen) /HPF Calcium Oxalate Crystal (None Seen) /HPF Urine Bacteria (None Seen) /HPF Urine Culture Reflexed (NO) Urine Opiates Level (NEGATIVE) Ur Methadone (NEGATIVE) Urine Barbiturates (NEGATIVE) Ur Phencyclidine (PCP) (NEGATIVE) Urine Amphetamine (NEGATIVE) U Benzodiazepine Level (NEGATIVE) Urine Cocaine (NEGATIVE) Urine Marijuana (THC) (NEGATIVE) 01/29/25 01/29/25 01/29/25 Range/Units 17:24 17:24 21:05 WBC (3.98-10.04) x10^3/uL RBC (3.93-5.22) x10^6/uL Hgb (11.2-15.7) g/dL Hct (34.1-44.9) % MCV (79.4-94.8) fL MCH (25.6-32.2) pg MCHC (32.2-35.5) g/dL RDW (11.7-14.4) % Plt Count (182-369) x10^3/uL MPV (9.4-12.3) fL Gran % (34.0-71.1) % Immature Gran % (Auto) (0.001-0.429) % Nucleat RBC Rel Count (0.00-0.2) % Eos # (Auto) (0.04-0.36) x10^3/uL Immature Gran # (Auto) (0.001-0.031) x10^3u/L Absolute Lymphs (auto) (1.18-3.74) x10^3/uL Absolute Monos (auto) (0.24-0.86) x10^3/uL Absolute Nucleated RBC (0.00-0.012) x10^3u/L Lymphocytes % (19.3-51.7) % Monocytes % (4.7-12.5) % Eosinophils % (0.7-5.8) % Basophils % (0.1-1.2) % Absolute Granulocytes (1.56-6.13) x10^3/uL Basophils # (0.01-0.08) x10^3/uL Ionized Calcium (1.12-1.32) mmol/L Sodium (135-145) mmol/L Potassium (3.5-5.1) mmol/L Chloride (98-107) mmol/L Carbon Dioxide (22-30) mmol/L Anion Gap (5-15) MEQ/L BUN (7-17) mg/dL Creatinine (0.52-1.04) mg/dL Estimated GFR ML/MIN Glucose (74-106) mg/dL POC Glucometer (74 to 106) mg/dL Hemoglobin A1c 5.55 (4.5-6.0) % Calcium (8.4-10.2) mg/dL Total Bilirubin (0.2-1.3) mg/dL AST (14-36) U/L ALT (0-35) U/L Alkaline Phosphatase (38-126) U/L Ammonia (9-30) umol/L Troponin I < 0.012 (0.000-0.033) ng/mL Serum Total Protein (6.3-8.2) g/dL Albumin (3.5-5.0) g/dL Lipase (23-300) U/L Vitamin B12 (239-931) pg/mL 25-OH Vitamin D Total (30-100) ng/mL Folic Acid 6.47 (2.76 - >20) ng/mL TSH 3rd Generation (0.470-4.680) mIU/L Urine Color (Yellow) Urine Appearance (Clear) Urine pH (4.6-8.0) Ur Specific [place]iva (1.005-1.030) Urine Protein (Negative) Urine Glucose (UA) (Negative) mg/dL Urine Ketones (Negative) Urine Blood (Negative) Urine Nitrite (Negative) Urine Bilirubin (Negative) Urine Urobilinogen (0.2) mg/dL Ur Leukocyte Esterase (Negative) Urine Microscopic RBC (0-5) /HPF Urine Microscopic WBC (0-5) /HPF Ur Epithelial Cells (None Seen) /HPF Calcium Oxalate Crystal (None Seen) /HPF Urine Bacteria (None Seen) /HPF Urine Culture Reflexed (NO) Urine Opiates Level (NEGATIVE) Ur Methadone (NEGATIVE) Urine Barbiturates (NEGATIVE) Ur Phencyclidine (PCP) (NEGATIVE) Urine Amphetamine (NEGATIVE) U Benzodiazepine Level (NEGATIVE) Urine Cocaine (NEGATIVE) Urine Marijuana (THC) (NEGATIVE) 01/29/25 01/30/25 01/30/25 Range/Units 21:28 05:00 05:00 WBC 6.5 (3.98-10.04) x10^3/uL RBC 5.11 (3.93-5.22) x10^6/uL Hgb 15.1 (11.2-15.7) g/dL Hct 45.4 H (34.1-44.9) % MCV 88.8 (79.4-94.8) fL MCH 29.5 (25.6-32.2) pg MCHC 33.3 (32.2-35.5) g/dL RDW 13.0 (11.7-14.4) % Plt Count 208 (182-369) x10^3/uL MPV 11.2 (9.4-12.3) fL Gran % 79.8 H (34.0-71.1) % Immature Gran % (Auto) 0.2 (0.001-0.429) % Nucleat RBC Rel Count 0.0 (0.00-0.2) % Eos # (Auto) 0 L (0.04-0.36) x10^3/uL Immature Gran # (Auto) 0.01 (0.001-0.031) x10^3u/L Absolute Lymphs (auto) 1.11 L (1.18-3.74) x10^3/uL Absolute Monos (auto) 0.18 L (0.24-0.86) x10^3/uL Absolute Nucleated RBC 0.00 (0.00-0.012) x10^3u/L Lymphocytes % 17.0 L (19.3-51.7) % Monocytes % 2.8 L (4.7-12.5) % Eosinophils % 0.0 L (0.7-5.8) % Basophils % 0.2 (0.1-1.2) % Absolute Granulocytes 5.22 (1.56-6.13) x10^3/uL Basophils # 0.01 (0.01-0.08) x10^3/uL Ionized Calcium (1.12-1.32) mmol/L Sodium 140 (135-145) mmol/L Potassium 4.6 (3.5-5.1) mmol/L Chloride 110 H (98-107) mmol/L Carbon Dioxide 20 L (22-30) mmol/L Anion Gap 14.8 (5-15) MEQ/L BUN 16 (7-17) mg/dL Creatinine 0.65 (0.52-1.04) mg/dL Estimated GFR 92.3 ML/MIN Glucose 171 H (74-106) mg/dL POC Glucometer 164 H (74 to 106) mg/dL Hemoglobin A1c (4.5-6.0) % Calcium 11.8 H (8.4-10.2) mg/dL Total Bilirubin 0.50 (0.2-1.3) mg/dL AST 25 (14-36) U/L ALT 26 (0-35) U/L Alkaline Phosphatase 159 H (38-126) U/L Ammonia (9-30) umol/L Troponin I (0.000-0.033) ng/mL Serum Total Protein 7.9 (6.3-8.2) g/dL Albumin 4.6 (3.5-5.0) g/dL Lipase (23-300) U/L Vitamin B12 (239-931) pg/mL 25-OH Vitamin D Total (30-100) ng/mL Folic Acid (2.76 - >20) ng/mL TSH 3rd Generation (0.470-4.680) mIU/L Urine Color (Yellow) Urine Appearance (Clear) Urine pH (4.6-8.0) Ur Specific [place]iva (1.005-1.030) Urine Protein (Negative) Urine Glucose (UA) (Negative) mg/dL Urine Ketones (Negative) Urine Blood (Negative) Urine Nitrite (Negative) Urine Bilirubin (Negative) Urine Urobilinogen (0.2) mg/dL Ur Leukocyte Esterase (Negative) Urine Microscopic RBC (0-5) /HPF Urine Microscopic WBC (0-5) /HPF Ur Epithelial Cells (None Seen) /HPF Calcium Oxalate Crystal (None Seen) /HPF Urine Bacteria (None Seen) /HPF Urine Culture Reflexed (NO) Urine Opiates Level (NEGATIVE) Ur Methadone (NEGATIVE) Urine Barbiturates (NEGATIVE) Ur Phencyclidine (PCP) (NEGATIVE) Urine Amphetamine (NEGATIVE) U Benzodiazepine Level (NEGATIVE) Urine Cocaine (NEGATIVE) Urine Marijuana (THC) (NEGATIVE) 01/30/25 Range/Units 07:28 WBC (3.98-10.04) x10^3/uL RBC (3.93-5.22) x10^6/uL Hgb (11.2-15.7) g/dL Hct (34.1-44.9) % MCV (79.4-94.8) fL MCH (25.6-32.2) pg MCHC (32.2-35.5) g/dL RDW (11.7-14.4) % Plt Count (182-369) x10^3/uL MPV (9.4-12.3) fL Gran % (34.0-71.1) % Immature Gran % (Auto) (0.001-0.429) % Nucleat RBC Rel Count (0.00-0.2) % Eos # (Auto) (0.04-0.36) x10^3/uL Immature Gran # (Auto) (0.001-0.031) x10^3u/L Absolute Lymphs (auto) (1.18-3.74) x10^3/uL Absolute Monos (auto) (0.24-0.86) x10^3/uL Absolute Nucleated RBC (0.00-0.012) x10^3u/L Lymphocytes % (19.3-51.7) % Monocytes % (4.7-12.5) % Eosinophils % (0.7-5.8) % Basophils % (0.1-1.2) % Absolute Granulocytes (1.56-6.13) x10^3/uL Basophils # (0.01-0.08) x10^3/uL Ionized Calcium (1.12-1.32) mmol/L Sodium (135-145) mmol/L Potassium (3.5-5.1) mmol/L Chloride (98-107) mmol/L Carbon Dioxide (22-30) mmol/L Anion Gap (5-15) MEQ/L BUN (7-17) mg/dL Creatinine (0.52-1.04) mg/dL Estimated GFR ML/MIN Glucose (74-106) mg/dL POC Glucometer 145 H (74 to 106) mg/dL Hemoglobin A1c (4.5-6.0) % Calcium (8.4-10.2) mg/dL Total Bilirubin (0.2-1.3) mg/dL AST (14-36) U/L ALT (0-35) U/L Alkaline Phosphatase (38-126) U/L Ammonia (9-30) umol/L Troponin I (0.000-0.033) ng/mL Serum Total Protein (6.3-8.2) g/dL Albumin (3.5-5.0) g/dL Lipase (23-300) U/L Vitamin B12 (239-931) pg/mL 25-OH Vitamin D Total (30-100) ng/mL Folic Acid (2.76 - >20) ng/mL TSH 3rd Generation (0.470-4.680) mIU/L Urine Color (Yellow) Urine Appearance (Clear) Urine pH (4.6-8.0) Ur Specific [place]iva (1.005-1.030) Urine Protein (Negative) Urine Glucose (UA) (Negative) mg/dL Urine Ketones (Negative) Urine Blood (Negative) Urine Nitrite (Negative) Urine Bilirubin (Negative) Urine Urobilinogen (0.2) mg/dL Ur Leukocyte Esterase (Negative) Urine Microscopic RBC (0-5) /HPF Urine Microscopic WBC (0-5) /HPF Ur Epithelial Cells (None Seen) /HPF Calcium Oxalate Crystal (None Seen) /HPF Urine Bacteria (None Seen) /HPF Urine Culture Reflexed (NO) Urine Opiates Level (NEGATIVE) Ur Methadone (NEGATIVE) Urine Barbiturates (NEGATIVE) Ur Phencyclidine (PCP) (NEGATIVE) Urine Amphetamine (NEGATIVE) U Benzodiazepine Level (NEGATIVE) Urine Cocaine (NEGATIVE) Urine Marijuana (THC) (NEGATIVE) Micro Results-Entire Visit: Microbiology 01/29/25 13:08 Urine Culture - Preliminary Catherized NO GROWTH TO DATE Accuchecks Date 01/30/25 Time 07:41 - Radiology Exams Ordered Rad Exams-Entire Visit: Radiology Procedures Category Date Time Status CHEST 1 VIEW (PORTABLE) Stat Exams 01/29/25 13:[address] ANGIOGRAPHY NECK [CT] Urgent Exams 01/29/25 16:47 Completed CTA HEAD W AND/OR WO CONTRAST [CT] Urgent Exams 01/29/25 16:47 Completed ECHO W/2D AND DOPPLER [US] Routine Exams 01/30/25 16:47 Ordered HEAD WITHOUT CONTRAST [CT] Stat Exams 01/29/25 13:09 Completed MRI BRAIN W/O CONTRAST [MRI] Routine Exams 01/29/25 16:47 Ordered - Procedures and Test Procedures and Tests throughout Hospitalization: Therapy Orders & Screens 01/29/25 16:02 Respiratory Therapy Consult ONCE Comment: Reason For Exam: 01/29/25 16:47 PT Eval & Treat (MD Order) ONCE Reason for Eval:: weakness Diagnosis: confusion OT Eval and Treat (MD Order) ONCE Comment: Physician Instructions: Reason For Exam: Diagnosis: confusion Discharge Exam General Appearance: no apparent distress, alert, obese Neurologic Exam: alert, oriented x 3, cooperative, 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, normal mood/affect, nml cerebellar function, sensation nml, motor weakness, abnormal gait, No motor deficits Eye Exam: PERRL, EOMI, eyes nml inspection Ears, Nose, Throat Exam: normal ENT inspection, pharynx normal, moist mucous membranes Neck Exam: normal inspection, non-tender, supple, full range of motion Respiratory Exam: normal breath sounds, lungs clear, No respiratory distress Cardiovascular Exam: regular rate/rhythm, normal heart sounds Gastrointestinal/Abdomen Exam: soft, No tenderness, No mass Pelvic Exam: deferred Rectal Exam: deferred Back Exam: normal inspection, normal range of motion, No CVA tenderness, No vertebral tenderness Extremity Exam: normal inspection, normal range of motion Skin Exam: normal color, warm, dry Final Diagnosis/Problem List - Final Discharge Diagnosis/Problem (1) Hypercalcemia Current Visit: Yes Status: Acute Assessment & Plan: - CA+ 11.8 - Prednsione 40 mg daily - Multiple labs pending for further evaluation - Will need OP f/u with endocrinology Code(s): E83.52 - HYPERCALCEMIA (2) UTI (urinary tract infection) Current Visit: Yes Status: Acute Assessment & Plan: - UC prelim negative- will continue to follow - Antibiotic stopped - IV fluids stopped- pt eating and drinking well - Zofran PRN nausea - CBC, CMP reviewed Code(s): N39.0 - URINARY TRACT INFECTION, SITE NOT SPECIFIED (3) Suicidal ideations Current Visit: Yes Status: Acute Assessment & Plan: - Psych consult Code(s): R45.851 - SUICIDAL IDEATIONS (4) Anxiety Current Visit: Yes Status: Chronic Assessment & Plan: -Continue Zoloft and Clonazepam Code(s): F41.9 - ANXIETY DISORDER, UNSPECIFIED (5) DMII (diabetes mellitus, type 2) Current Visit: Yes Status: Chronic Assessment & Plan: -ADA diet -SSI, accuchecks AC/HS -A1c 5.55, controlled (6) HLD (hyperlipidemia) Current Visit: Yes Status: Chronic Assessment & Plan: - Continue atorvastatin Code(s): E78.5 - HYPERLIPIDEMIA, UNSPECIFIED (7) HTN (hypertension) Current Visit: Yes Status: Chronic Assessment & Plan: - Continue metoprolol - BP elevated this AM trend Code(s): I10 - ESSENTIAL (PRIMARY) HYPERTENSION (8) Obesity (BMI 30.0-34.9) Current Visit: Yes Status: Chronic Assessment & Plan: - Advised ADA diet and exercise control Code(s): E66.811 - OBESITY, CLASS 1 (9) Vitamin B12 deficiency Current Visit: Yes Status: Acute Assessment & Plan: - Cyanocobalamin 2,000 mcg PO daily x2 weeks then reduce to 1,000 mcg daily. Code(s): E53.8 - DEFICIENCY OF OTHER SPECIFIED B GROUP VITAMINS (10) Vitamin D deficiency Current Visit: Yes Status: Acute Assessment & Plan: - Vitamin D 13.0 - Unable to replace as has hypercalcemia Code(s): E55.9 - VITAMIN D DEFICIENCY, UNSPECIFIED (11) Acute encephalopathy Current Visit: Yes Status: Resolved Assessment & Plan: - Resolved - CBC, CMP reviewed - BC x2 pending - UC negative - MRI negative - CT head: 1. There is no acute infarct, hemorrhage, or mass effect. 2. There are age-appropriate brain involutional changes. 3. Chronic microvascular ischemic changes are unchanged. 4. Interval resolution of the right frontal subcutaneous hematoma. 5. No interval new abnormality. - CT angiography: 1. There is no evidence of any acute vascular abnormality noted, including thrombosis or aneurysm. 2. Note is made of medialization of the bilateral internal carotid arteries at the level of the pharynx, more on the right as compared to the left side. This is a relatively significant and dangerous anatomical variant. Needs clinical correlation. - CTA head: 1. There is no evidence of significant vascular abnormalities. 2. Redemonstration of bilateral mild periventricular ischemic changes on the background of atrophic brain changes, which are stable. -Likely multifactorial: hypercalcemia, baseline chronic microvascular ischemic disease, and psychosocial stressors. No evidence of acute stroke or infection on initial workup. D/C plan: > 45 minutes D/C meds new: steroids, cyanocobalamin Code(s): G93.40 - ENCEPHALOPATHY, UNSPECIFIED - Discharge Discharge Date: 01/30/25 Disposition: Home, Self-Care Condition: Stable Prescriptions: New RX: Cyanocobalamin 500 Mcg [Vitamin B-12 500 MCG] 2,000 mcg PO DAILY 14 Days #56 tablet RX: Prednisone 20 mg [Deltasone 20 mg] 20 mg PO BID 5 Days #10 tablet Continue RX: Clonazepam [Klonopin] 1 mg PO BID PRN PRN PRN Reason: Anxiety RX: Sertraline HCl [Zoloft] 100 mg PO DAILY RX: Metoprolol Succinate 50 mg [Toprol Xl 50 MG] 50 mg PO DAILY #0 tablet.sa RX: Atorvastatin Calcium [Lipitor] 10 mg PO DAILY RX: Aspirin EC 81 mg [Ecotrin 81 mg] 81 mg PO DAILY Additional Instructions: USE ROLLATOR AT ALL TIMES WHEN WALKING [facility] HAS BEEN SET UP FOR YOU. THEY WILL CALL YOU TO ARRANGE A TIME TO COME SEE YOU. THEIR PHONE NUMBER IS [phone] IF YOU NEED ANYTHING PRIOR TO THEIR VISIT Follow up with: LEXX ZHANG [Primary Care Provider, FAMILY PRACTICE] KASSY NICHOLE [NON-STAFF PHY W/O PRIVILEGES, UNKNOWN] - 03/20/25 10:00 am Referral Note: [id number] [place] [id number]
[2025-01-30] MEDS: Protonix 40MG Tablet PO SCH (11:12)
[2025-01-30] MEDS: ECOTRIN 81 MG PO SCH (11:12)
[2025-01-30] MEDS: Vitamin B-12 500 MCG PO SCH (11:12)
[2025-01-30] MEDS: Zocor 10MG PO SCH (11:14)
[2025-01-30] MEDS: ZOLOFT 50 MG TABLET PO SCH (11:14)
--- NOTE | 2025-01-30 14:25 | XRAY ---
Indication: Stroke. Negative CT head, normal CTA neck, and normal CTA head. Sagittal, coronal, and axial MRI brain performed without contrast using T1, T2, FLAIR, diffusion, and ADC sequences. Comparison: None Age-appropriate global atrophy and minimal periventricular degenerative micro ischemia bilaterally. No acute intracranial hemorrhage, abnormal extra-axial fluid collection, or mass effect. Diffusion images negative for restricted signal. 4th ventricle is midline without hydrocephalus. 7/8 cranial nerve complex bilaterally symmetric. Normal flow void signal within the major intracerebral circulation. Normal appearing craniocervical junction and sella turcica. Paranasal sinuses are clear. Impression: Atrophy and degenerative micro ischemia within normal limits. Remaining MRI brain without contrast exam is negative.
[2025-01-30] MEDS: Toprol Xl 50 MG PO SCH (15:27)
[2025-01-30 15:52] VITALS: BP 133/69; PULSE 70; O2SAT 97
[2025-01-31 08:49] LABS: CA 27.29 13.7 U/mL (0.0-38.6)
[2025-01-31 13:11] LABS: Albumin 3.8 g/dL (2.9-4.4); Alpha-1-Globulin 0.2 g/dL (0.0-0.4); Alpha-2-Globulin 0.8 g/dL (0.4-1.0); Gamma Globulin 1.2 g/dL (0.4-1.8)
[2025-01-31 16:17] LABS: CA 19-9 9 U/mL (0-35)
[2025-01-31 19:08] LABS: Free Dappa Lt Chains,S 16.9 mg/L (3.3-19.4); Free Lambda Lt Chains,S 11.2 mg/L (5.7-26.3)
[2025-02-01 02:05] LABS: Kappa/Lambda Ratio, S 1.51 (0.26-1.65)
== END 2025-01-30 18:05 | disposition home or self-care (01) ==
LOC: ED 12:37 → MED SURG 16:00
PROVIDERS: ADMIT Internal Medicine; ATTEND Internal Medicine
DX: E83.52 Hypercalcemia (principal); N39.0 Urinary tract infection, site not specified; R45.851 Suicidal ideations; F41.9 Anxiety disorder, unspecified; E11.9 Type 2 diabetes mellitus without complications; E78.5 Hyperlipidemia, unspecified; I10 Essential (primary) hypertension; E66.811 Obesity, class 1; E53.8 Deficiency of other specified B group vitamins; G93.40 Encephalopathy, unspecified; R42 Dizziness and giddiness; R29.6 Repeated falls; Z79.899 Other long term (current) drug therapy
CPT/HCPCS: 36415; 70450; 70496; 70498; 70551; 71045; 80053; 80307; 81001; 82140; 82306; 82310; 82330; 82378; 82607; 82746; 82947; 83036; 83521; 83690; 83970; 84165; 84443; 84484; 85025; 86300; 86301; 86304; 87040; 87086; 93005; 93306; 97161; 97165; 99285; Q3014